=== PATIENT | female | born 1945 | race Hispanic/Latino ===

== ENCOUNTER 2018-12-20 11:37 | Day surgery (SDC) | payer MEDICARE ==
[~2018-12-20 11:37] MED LIST: APRACLONIDINE 1% OPHTH SOLN DROPERETTE OD ONE; APRACLONIDINE 1% OPHTH SOLN DROPERETTE ONE; PHENYLEPHRINE 10% OPHTH SOLN 5 ML OD ONE; PHENYLEPHRINE 10% OPHTH SOLN 5 ML ONE; TROPICAMIDE 1% OPHTH SOLN 3 ML OD ONE; TROPICAMIDE 1% OPHTH SOLN 3 ML ONE
[2018-12-20] MEDS ORDERED: PHENYLEPHRINE 10% OPHTH SOLN 5 ML OD ONE (12:00)
[2018-12-20] MEDS ORDERED: APRACLONIDINE 1% OPHTH SOLN DROPERETTE OD ONE ×2 (12:00→12:28)
[2018-12-20] MEDS ORDERED: TROPICAMIDE 1% OPHTH SOLN 3 ML OD ONE (12:00)
[2018-12-20 12:59] VITALS: BP 96/40
== END 2018-12-20 12:30 | disposition home or self-care (01) ==
LOC: OR 11:37
PROVIDERS: ATTEND Specialist
DX: H26.491 Other secondary cataract, right eye (principal); I13.0 Hypertensive heart and chronic kidney disease with heart failure and stage 1 through stage 4 chronic kidney disease, or unspecified chronic kidney disease; N18.3 Chronic kidney disease, stage 3 (moderate); I50.9 Heart failure, unspecified; I73.9 Peripheral vascular disease, unspecified; K21.9 Gastro-esophageal reflux disease without esophagitis; E78.00 Pure hypercholesterolemia, unspecified; M06.9 Rheumatoid arthritis, unspecified; F32.9 Major depressive disorder, single episode, unspecified; F41.9 Anxiety disorder, unspecified; Z98.890 Other specified postprocedural states; Z88.5 Allergy status to narcotic agent; Z79.899 Other long term (current) drug therapy; Z98.41 Cataract extraction status, right eye; Z98.42 Cataract extraction status, left eye; Z86.73 Personal history of transient ischemic attack (TIA), and cerebral infarction without residual deficits; Z86.2 Personal history of diseases of the blood and blood-forming organs and certain disorders involving the immune mechanism; Z88.8 Allergy status to other drugs, medicaments and biological substances

== ENCOUNTER 2018-12-27 10:37 | Day surgery (SDC) | payer MEDICARE ==
[~2018-12-27 10:37] MED LIST changes: -APRACLONIDINE 1% OPHTH SOLN DROPERETTE OD ONE; -PHENYLEPHRINE 10% OPHTH SOLN 5 ML OD ONE; -TROPICAMIDE 1% OPHTH SOLN 3 ML OD ONE
[2018-12-27] MEDS ORDERED: PHENYLEPHRINE 10% OPHTH SOLN 5 ML OS ONE (11:04)
[2018-12-27] MEDS ORDERED: TROPICAMIDE 1% OPHTH SOLN 3 ML OS ONE (11:04)
[2018-12-27] MEDS ORDERED: APRACLONIDINE 1% OPHTH SOLN DROPERETTE OS ONE ×2 (11:04→12:33)
[2018-12-27 12:03] VITALS: BP 103/44
== END 2018-12-27 12:35 | disposition home or self-care (01) ==
LOC: OR 10:37
PROVIDERS: ATTEND Specialist
DX: H26.492 Other secondary cataract, left eye (principal); I13.0 Hypertensive heart and chronic kidney disease with heart failure and stage 1 through stage 4 chronic kidney disease, or unspecified chronic kidney disease; N18.3 Chronic kidney disease, stage 3 (moderate); I50.9 Heart failure, unspecified; I73.9 Peripheral vascular disease, unspecified; E78.00 Pure hypercholesterolemia, unspecified; K21.9 Gastro-esophageal reflux disease without esophagitis; M06.9 Rheumatoid arthritis, unspecified; M19.90 Unspecified osteoarthritis, unspecified site; F32.9 Major depressive disorder, single episode, unspecified; F41.9 Anxiety disorder, unspecified; Z98.890 Other specified postprocedural states; Z88.5 Allergy status to narcotic agent; Z79.899 Other long term (current) drug therapy; Z98.41 Cataract extraction status, right eye; Z98.42 Cataract extraction status, left eye; Z86.73 Personal history of transient ischemic attack (TIA), and cerebral infarction without residual deficits; Z86.2 Personal history of diseases of the blood and blood-forming organs and certain disorders involving the immune mechanism